=== PATIENT | female | born 1940 | race Caucasian/White ===

== ENCOUNTER 2022-03-17 08:46 | Observation (INO) ==
[2022-03-17] MEDS ORDERED: SODIUM CHLORIDE 0.9% 1,000 ML IV STA (09:11)
[2022-03-17 09:41] LABS: Eosinophils # 0.1 10*3/uL (0.0-0.87); Eosinophils % 2.8 % (0.00-10.9); Hematocrit 39.1 VOL% (35.7-47.0); Hemoglobin 12.2 GM/DL (12.0-16.0); Immature Granulocytes % 0.3 %; Immature Granulocytes Absolute 0.01 #; Lymphocytes % 23.8 % (21.3-54.2); Mean Corpuscular HGB Conc 31.2 GM/DL (32-36); Mean Corpuscular Volume 82.8 FL (87-102); Mean Platelet Volume 13.2 FL (9.6-12.0); Monocytes # 0.4 10*3/uL (0.11-0.8); Monocytes % 9.3 % (1.7-12.7); Neutrophils % 62.8 % (38.7-73.9); Platelet Count 131 T/CUMM (130-400); Red Blood Count 4.72 MC/CUMM (3.8-5.5); Red Cell Distribution Width 16.7 % (9.3-17.3)
[2022-03-17 10:00] LABS: Albumin 2.9 G/DL (3.4-5.0); Bilirubin,Total 0.4 MG/DL (0.20-1.00); Calcium 8.3 MG/DL (8.5-10.1); Osmolality,Calculated 266.2 MOS/KG (273-304); Potassium 3.6 MMOL/L (3.5-5.1); Total Protein 7.1 G/DL (6.4-8.2)
[2022-03-17 10:25] LABS: Burr Cells Slight; Ovalocytes Slight
[2022-03-17 10:26] LABS: Platelet Estimate Adequate
[2022-03-17 10:49] LABS: INR 1.3; PT Patient Result 14.4 SECS (10.5-12.0)
[2022-03-17] MEDS ORDERED: ACETAMINOPHEN 325 MG TABLET PO PRN (10:50)
[2022-03-17] MEDS ORDERED: ONDANSETRON 4 MG/2 ML VIAL IV PRN (10:50)
[2022-03-17] MEDS ORDERED: DEXTROSE 10% 250 ML BAG IV PRN (10:50)
[2022-03-17] MEDS ORDERED: GLUCAGON 1 MG VIAL IM PRN (10:50)
[2022-03-17 12:25] LABS: Bacteria,Urine Occasional /HPF (Few); Mucus,Urine Occasional /LPF (Occasional); RBC,Urine 1 /HPF (0-4); Squamous Epithelial Cell,Urine Occasional /HPF (0-10); Urine Color Yellow (Yellow)
[2022-03-17 12:26] LABS: Bilirubin,Urine Negative (Negative); Blood, Urine Trace mg/dL (Negative); Glucose,Urine (UA) Negative (Negative); Ketones,Urine Negative (Negative); Nitrite,Urine Negative (Negative); Protein,Urine Negative (Negative); Urine Appearance Clear (Clear); Urine Urobilinogen 0.2 eU/dL (<2.0); Urine pH 5.5 (4.5-8.0)
[2022-03-17] MEDS: SODIUM CHLORIDE 0.9% 1,000 ML IV SCH ×2 (13:02→18:21)
[2022-03-17] MEDS ORDERED: CYANOCOBALAMIN 1000 MCG/1 ML VIAL IM ONE (17:00)
[2022-03-17] MEDS: WARFARIN 7.5 MG TABLET PO SCH (18:16)
[2022-03-17] MEDS: POTASSIUM CHLORIDE 20 MEQ TABLET PO SCH (18:17)
[2022-03-17] MEDS: DONEPEZIL 5 MG TABLET PO SCH (21:05)
[2022-03-17] MEDS: TOPIRAMATE 200 MG TABLET PO SCH (21:05)
[2022-03-17] MEDS: OXcarbazepine 300 MG TABLET PO SCH (21:05)
[2022-03-17] MEDS: MAGNESIUM OXIDE 400 MG TABLET PO SCH (21:05)
[2022-03-17] MEDS: DOCUSATE SODIUM 100 MG CAPSULE PO SCH (21:05)
[2022-03-18] MEDS: SODIUM CHLORIDE 0.9% 1,000 ML IV SCH ×2 (02:17→18:11)
[2022-03-18 05:15] LABS: Basophils % 1.2 % (0.0-0.8); Eosinophils # 0.2 10*3/uL (0.0-0.87); Eosinophils % 5.7 % (0.00-10.9); Hematocrit 34.8 VOL% (35.7-47.0); Hemoglobin 10.7 GM/DL (12.0-16.0); Immature Granulocytes % 0.3 %; Immature Granulocytes Absolute 0.01 #; Lymphocytes # 1.3 10*3/uL (1.4-4.0); Lymphocytes % 38.3 % (21.3-54.2); Mean Corpuscular HGB Conc 30.7 GM/DL (32-36); Mean Corpuscular Volume 83.5 FL (87-102); Mean Platelet Volume 12.7 FL (9.6-12.0); Monocytes # 0.4 10*3/uL (0.11-0.8); Monocytes % 11.4 % (1.7-12.7); Neutrophils % 43.1 % (38.7-73.9); Platelet Count 113 T/CUMM (130-400); Red Blood Count 4.17 MC/CUMM (3.8-5.5); Red Cell Distribution Width 17.1 % (9.3-17.3); White Blood Count 3.3 T/CUMM (4-12)
[2022-03-18 05:33] LABS: Alanine Aminotransferase 13 U/L (13-56); Albumin 2.6 G/DL (3.4-5.0); Alkaline Phosphatase 108 U/L (45-117); Aspartate Amino Transferase 18 U/L (0-37); Bilirubin,Total < 0.39 MG/DL (0.20-1.00); Blood Urea Nitrogen 10 MG/DL (7-18); Calcium 8.1 MG/DL (8.5-10.1); Carbon Dioxide 20 MMOL/L (21-32); Chloride 111 MMOL/L (98-107); Glucose 96 MG/DL (74-106); Potassium 3.5 MMOL/L (3.5-5.1); Sodium 136 MMOL/L (136-145); Total Protein 6.5 G/DL (6.4-8.2)
[2022-03-18] MEDS: DOCUSATE SODIUM 100 MG CAPSULE PO SCH ×2 (10:20→21:36)
[2022-03-18] MEDS: TOPIRAMATE 200 MG TABLET PO SCH ×2 (10:22→21:36)
[2022-03-18] MEDS: POTASSIUM CHLORIDE 20 MEQ TABLET PO SCH ×2 (10:22→18:09)
[2022-03-18] MEDS: METOPROLOL SUCCINATE XL 25 MG TABLET PO SCH (10:22)
[2022-03-18] MEDS: OXcarbazepine 300 MG TABLET PO SCH ×2 (10:23→21:36)
[2022-03-18] MEDS: LOSARTAN 50 MG TABLET PO SCH (10:26)
[2022-03-18] MEDS: MAGNESIUM OXIDE 400 MG TABLET PO SCH ×2 (10:26→21:35)
[2022-03-18] MEDS: FUROSEMIDE 40 MG TABLET PO SCH (10:26)
[2022-03-18] MEDS: PANTOPRAZOLE 40 MG TABLET PO SCH (10:26)
[2022-03-18] MEDS: WARFARIN 7.5 MG TABLET PO SCH (18:10)
[2022-03-18] MEDS: DONEPEZIL 5 MG TABLET PO SCH (21:34)
[2022-03-18] MEDS: ATORVASTATIN 40 MG TABLET PO SCH (21:35)
[2022-03-19 04:52] LABS: Basophils % 0.6 % (0.0-0.8); Eosinophils # 0.3 10*3/uL (0.0-0.87); Eosinophils % 5.3 % (0.00-10.9); Hematocrit 34.9 VOL% (35.7-47.0); Hemoglobin 10.9 GM/DL (12.0-16.0); Immature Granulocytes % 0.2 %; Immature Granulocytes Absolute 0.01 #; Lymphocytes # 1.3 10*3/uL (1.4-4.0); Lymphocytes % 27.2 % (21.3-54.2); Mean Corpuscular HGB Conc 31.2 GM/DL (32-36); Mean Corpuscular Volume 83.3 FL (87-102); Monocytes # 0.5 10*3/uL (0.11-0.8); Monocytes % 10.6 % (1.7-12.7); Neutrophils % 56.1 % (38.7-73.9); Platelet Count 108 T/CUMM (130-400); Red Blood Count 4.19 MC/CUMM (3.8-5.5); Red Cell Distribution Width 17.2 % (9.3-17.3)
[2022-03-19 04:56] LABS: White Blood Count 4.9 T/CUMM (4-12)
[2022-03-19] MEDS: POTASSIUM CHLORIDE 20 MEQ TABLET PO SCH ×2 (11:13→19:44)
[2022-03-19] MEDS: MAGNESIUM OXIDE 400 MG TABLET PO SCH ×2 (11:13→20:29)
[2022-03-19] MEDS: OXcarbazepine 300 MG TABLET PO SCH ×2 (11:13→20:29)
[2022-03-19] MEDS: DOCUSATE SODIUM 100 MG CAPSULE PO SCH ×2 (11:14→20:30)
[2022-03-19] MEDS: PANTOPRAZOLE 40 MG TABLET PO SCH (11:14)
[2022-03-19] MEDS: TOPIRAMATE 200 MG TABLET PO SCH ×2 (11:16→20:30)
[2022-03-19] MEDS: METOPROLOL SUCCINATE XL 25 MG TABLET PO SCH (11:21)
[2022-03-19] MEDS: LOSARTAN 50 MG TABLET PO SCH (11:21)
[2022-03-19] MEDS: FUROSEMIDE 40 MG TABLET PO SCH (11:21)
[2022-03-19 14:46] LABS: PT Patient Result 21.4 SECS (10.5-12.0)
[2022-03-19] MEDS: ENOXAPARIN 80 MG/0.8 ML SYRINGE SUBCUT SCH (16:31)
[2022-03-19] MEDS: SODIUM CHLORIDE 0.9% 1,000 ML IV SCH (16:33)
[2022-03-19] MEDS: WARFARIN 7.5 MG TABLET PO SCH (19:44)
[2022-03-19] MEDS: DONEPEZIL 5 MG TABLET PO SCH (20:30)
[2022-03-19] MEDS: ATORVASTATIN 40 MG TABLET PO SCH (20:30)
[2022-03-20 05:33] LABS: Basophils % 0.8 % (0.0-0.8); Eosinophils # 0.2 10*3/uL (0.0-0.87); Eosinophils % 6.2 % (0.00-10.9); Hemoglobin 10.9 GM/DL (12.0-16.0); Immature Granulocytes % 0.3 %; Immature Granulocytes Absolute 0.01 #; Lymphocytes # 1.4 10*3/uL (1.4-4.0); Lymphocytes % 36.4 % (21.3-54.2); Mean Corpuscular HGB Conc 30.3 GM/DL (32-36); Mean Corpuscular Volume 84.3 FL (87-102); Monocytes # 0.5 10*3/uL (0.11-0.8); Monocytes % 11.9 % (1.7-12.7); Neutrophils % 44.4 % (38.7-73.9); Red Blood Count 4.27 MC/CUMM (3.8-5.5); Red Cell Distribution Width 17.2 % (9.3-17.3); White Blood Count 3.9 T/CUMM (4-12)
[2022-03-20 05:34] LABS: Platelet Count 96 T/CUMM (130-400)
[2022-03-20 05:52] LABS: Platelet Estimate Decreased
[2022-03-20] MEDS: SODIUM CHLORIDE 0.9% 1,000 ML IV SCH (06:33)
[2022-03-20] MEDS: DOCUSATE SODIUM 100 MG CAPSULE PO SCH (08:57)
[2022-03-20] MEDS: OXcarbazepine 300 MG TABLET PO SCH (09:29)
[2022-03-20] MEDS: PANTOPRAZOLE 40 MG TABLET PO SCH (09:29)
[2022-03-20] MEDS: FUROSEMIDE 40 MG TABLET PO SCH (09:29)
[2022-03-20] MEDS: POTASSIUM CHLORIDE 20 MEQ TABLET PO SCH (09:29)
[2022-03-20] MEDS: MAGNESIUM OXIDE 400 MG TABLET PO SCH (09:30)
[2022-03-20] MEDS: LOSARTAN 50 MG TABLET PO SCH (09:30)
[2022-03-20] MEDS: METOPROLOL SUCCINATE XL 25 MG TABLET PO SCH (09:31)
[2022-03-20] MEDS: TOPIRAMATE 200 MG TABLET PO SCH (09:31)
[2022-03-20 14:18] VITALS: BP 151/73
[2022-03-20] MEDS: ENOXAPARIN 80 MG/0.8 ML SYRINGE SUBCUT SCH (15:02)
[2022-03-20] MEDS ORDERED: WARFARIN 5 MG TABLET PO SCH (18:00)
== END 2022-03-20 15:33 | disposition home or self-care (01) ==
LOC: N.ED 08:46 → N.EDINP 08:46 → N.TELEN 15:30
PROVIDERS: ADMIT Family Medicine; ATTEND Family Medicine

== ENCOUNTER 2022-06-13 10:31 | Inpatient (IN) ==
[2022-06-13] MEDS ORDERED: BISACODYL 5 MG TABLET PO PRN (10:42)
[2022-06-13] MEDS ORDERED: CALCIUM CARBONATE CHEW 500 MG TABLET PO PRN (10:42)
[2022-06-13] MEDS ORDERED: ACETAMINOPHEN 325 MG TABLET PO PRN (10:42)
[2022-06-13] MEDS ORDERED: ALUMINUM/MAGNES/SIMETH MAX STR 30 ML UDCUP PO PRN (10:42)
[2022-06-13] MEDS ORDERED: SIMETHICONE CHEW 125 MG TABLET PO PRN (10:42)
[2022-06-13] MEDS ORDERED: ONDANSETRON 4 MG/2 ML VIAL IV PRN (10:42)
[2022-06-13] MEDS ORDERED: LACTULOSE 20 GM/30 ML UDCUP PO PRN (10:42)
[2022-06-13 12:28] LABS: Basophils # 0.1 10*3/uL (0.0-0.2); Basophils % 1.5 % (0.0-0.8); Eosinophils # 0.1 10*3/uL (0.0-0.87); Eosinophils % 1.8 % (0.00-10.9); Hematocrit 31.8 VOL% (35.7-47.0); Hemoglobin 9.6 GM/DL (12.0-16.0); Immature Granulocytes % 0.5 %; Immature Granulocytes Absolute 0.02 #; Lymphocytes # 1.1 10*3/uL (1.4-4.0); Lymphocytes % 28.6 % (21.3-54.2); Mean Corpuscular HGB Conc 30.2 GM/DL (32-36); Mean Corpuscular Volume 79.3 FL (87-102); Mean Platelet Volume 10.6 FL (9.6-12.0); Monocytes # 0.3 10*3/uL (0.11-0.8); Monocytes % 7.5 % (1.7-12.7); Neutrophils % 60.1 % (38.7-73.9); Platelet Count 212 T/CUMM (130-400); Red Blood Count 4.01 MC/CUMM (3.8-5.5); Red Cell Distribution Width 17.9 % (9.3-17.3); White Blood Count 3.9 T/CUMM (4-12)
[2022-06-13 12:35] LABS: Mucus,Urine Occasional /LPF (Occasional); RBC,Urine 4 /HPF (0-4); Squamous Epithelial Cell,Urine Occasional /HPF (0-10)
[2022-06-13 12:36] LABS: Urine Appearance Slightly Hazy (Clear); Urine Color Yellow (Yellow); Urine Specific Gravity > 1.030 (1.001-1.035); Urine pH 5.5 (4.5-8.0)
[2022-06-13 12:37] LABS: Bilirubin,Urine Small mg/dL (Negative); Blood, Urine Negative (Negative); Glucose,Urine (UA) Negative (Negative); Ketones,Urine Negative (Negative); Nitrite,Urine Negative (Negative); Protein,Urine 100 mg/dL (Negative)
[2022-06-13 13:39] LABS: Albumin 2.8 G/DL (3.4-5.0); Calcium 8.4 MG/DL (8.5-10.1); Osmolality,Calculated 254.9 MOS/KG (273-304); Potassium 5.1 MMOL/L (3.5-5.1); Thyroid Stimulating Hormone 3.57 uIU/ml (0.358-3.74); Total Protein 6.8 G/DL (6.4-8.2)
[2022-06-13] MEDS ORDERED: DEXTROSE 10% 250 ML BAG IV PRN (14:37)
[2022-06-13] MEDS ORDERED: GLUCAGON 1 MG VIAL IM PRN (14:37)
[2022-06-13 14:45] LABS: INR 4.4; PT Patient Result 43.4 SECS (10.1-12.1)
[2022-06-13] MEDS ORDERED: MAGNESIUM SULF RIDER 2 GM/50 ML PREMIX IV ONE (15:00)
[2022-06-13] MEDS: FUROSEMIDE 40 MG/4 ML VIAL IV SCH (15:35)
[2022-06-13] MEDS: INSULIN LISPRO 100 UNIT/ML SUBCUT SCH ×2 (15:53→20:43)
[2022-06-13 16:32] LABS: % Iron Saturation 5.1 % (18-50); Ferritin 16.5 ng/mL (8-252)
[2022-06-13] MEDS ORDERED: POTASSIUM CHLORIDE 20 MEQ TABLET PO SCH (17:00)
[2022-06-13] MEDS: TOPIRAMATE 100 MG TABLET PO SCH (20:42)
[2022-06-13] MEDS: MAGNESIUM OXIDE 400 MG TABLET PO SCH (20:42)
[2022-06-13] MEDS: ATORVASTATIN 40 MG TABLET PO SCH (20:42)
[2022-06-13] MEDS: DONEPEZIL 5 MG TABLET PO SCH (20:42)
[2022-06-14 05:06] LABS: Basophils # 0.1 10*3/uL (0.0-0.2); Basophils % 1.3 % (0.0-0.8); Eosinophils # 0.1 10*3/uL (0.0-0.87); Eosinophils % 2.6 % (0.00-10.9); Hematocrit 28.1 VOL% (35.7-47.0); Hemoglobin 8.5 GM/DL (12.0-16.0); Immature Granulocytes % 0.3 %; Immature Granulocytes Absolute 0.01 #; Lymphocytes # 1.1 10*3/uL (1.4-4.0); Lymphocytes % 29.6 % (21.3-54.2); Mean Corpuscular HGB Conc 30.2 GM/DL (32-36); Mean Corpuscular Volume 78.1 FL (87-102); Mean Platelet Volume 10.6 FL (9.6-12.0); Monocytes # 0.3 10*3/uL (0.11-0.8); Monocytes % 8.6 % (1.7-12.7); Neutrophils % 57.6 % (38.7-73.9); Platelet Count 194 T/CUMM (130-400); Red Cell Distribution Width 17.8 % (9.3-17.3); White Blood Count 3.9 T/CUMM (4-12)
[2022-06-14 05:13] LABS: INR 3.2; PT Patient Result 32.1 SECS (10.1-12.1)
[2022-06-14 05:42] LABS: Calcium 8.3 MG/DL (8.5-10.1); Osmolality,Calculated 254.9 MOS/KG (273-304); Potassium 3.5 MMOL/L (3.5-5.1); Risk Ratio 2.43; VLDL Cholesterol 10.2 MG/DL
[2022-06-14] MEDS: INSULIN LISPRO 100 UNIT/ML SUBCUT SCH ×4 (08:38→21:25)
[2022-06-14] MEDS: FUROSEMIDE 40 MG/4 ML VIAL IV SCH ×2 (08:39→16:39)
[2022-06-14] MEDS: LEFLUNOMIDE 10 MG TABLET PO SCH (08:40)
[2022-06-14] MEDS: amLODIPine 5 MG TABLET PO SCH (08:40)
[2022-06-14] MEDS: MAGNESIUM OXIDE 400 MG TABLET PO SCH ×2 (08:40→21:24)
[2022-06-14] MEDS: TOPIRAMATE 100 MG TABLET PO SCH ×2 (08:40→21:24)
[2022-06-14] MEDS: METOPROLOL SUCCINATE XL 50 MG TABLET PO SCH (08:41)
[2022-06-14] MEDS: CHOLECALCIFEROL 1,000 UNIT TABLET PO SCH (08:41)
[2022-06-14] MEDS: PANTOPRAZOLE 40 MG TABLET PO SCH (08:41)
[2022-06-14] MEDS: FERROUS SULFATE 325 MG TABLET PO SCH ×3 (08:43→21:25)
[2022-06-14] MEDS ORDERED: SODIUM CHLORIDE 0.9% 1,000 ML IV PRN (14:16)
[2022-06-14] MEDS: DONEPEZIL 5 MG TABLET PO SCH (21:24)
[2022-06-14] MEDS: ATORVASTATIN 40 MG TABLET PO SCH (21:25)
[2022-06-15] MEDS ORDERED: FUROSEMIDE 40 MG/4 ML VIAL IV ONE (01:09)
[2022-06-15 08:17] LABS: Basophils # 0.1 10*3/uL (0.0-0.2); Basophils % 1.3 % (0.0-0.8); Eosinophils # 0.1 10*3/uL (0.0-0.87); Eosinophils % 3.6 % (0.00-10.9); Hematocrit 34.1 VOL% (35.7-47.0); Immature Granulocytes % 0.3 %; Immature Granulocytes Absolute 0.01 #; Lymphocytes # 0.8 10*3/uL (1.4-4.0); Lymphocytes % 20.2 % (21.3-54.2); Mean Corpuscular HGB Conc 31.4 GM/DL (32-36); Mean Corpuscular Volume 79.3 FL (87-102); Mean Platelet Volume 11.8 FL (9.6-12.0); Monocytes # 0.4 10*3/uL (0.11-0.8); Monocytes % 9.1 % (1.7-12.7); Neutrophils % 65.5 % (38.7-73.9); Red Cell Distribution Width 18.6 % (9.3-17.3); White Blood Count 3.9 T/CUMM (4-12)
[2022-06-15 08:22] LABS: Hemoglobin 10.7 GM/DL (12.0-16.0); Platelet Count 141 T/CUMM (130-400)
[2022-06-15 08:24] LABS: INR 1.7; PT Patient Result 17.6 SECS (10.1-12.1)
[2022-06-15 08:33] LABS: Calcium 8.4 MG/DL (8.5-10.1); Osmolality,Calculated 262.4 MOS/KG (273-304); Potassium 3.2 MMOL/L (3.5-5.1)
[2022-06-15] MEDS: INSULIN LISPRO 100 UNIT/ML SUBCUT SCH ×4 (08:45→21:14)
[2022-06-15] MEDS: FUROSEMIDE 40 MG/4 ML VIAL IV SCH ×2 (08:47→15:33)
[2022-06-15] MEDS: TOPIRAMATE 100 MG TABLET PO SCH ×2 (08:49→21:14)
[2022-06-15] MEDS: CHOLECALCIFEROL 1,000 UNIT TABLET PO SCH (08:50)
[2022-06-15] MEDS: PANTOPRAZOLE 40 MG TABLET PO SCH (08:50)
[2022-06-15] MEDS: LEFLUNOMIDE 10 MG TABLET PO SCH (08:50)
[2022-06-15] MEDS: amLODIPine 5 MG TABLET PO SCH (08:50)
[2022-06-15] MEDS: METOPROLOL SUCCINATE XL 50 MG TABLET PO SCH (08:50)
[2022-06-15] MEDS: FERROUS SULFATE 325 MG TABLET PO SCH ×3 (08:50→21:18)
[2022-06-15] MEDS: MAGNESIUM OXIDE 400 MG TABLET PO SCH ×2 (08:51→21:13)
[2022-06-15] MEDS: WARFARIN 7.5 MG TABLET PO SCH (17:59)
[2022-06-15] MEDS: ATORVASTATIN 40 MG TABLET PO SCH (21:13)
[2022-06-15] MEDS: DONEPEZIL 5 MG TABLET PO SCH (21:14)
[2022-06-16 05:15] LABS: Eosinophils # 0.2 10*3/uL (0.0-0.87); Eosinophils % 3.9 % (0.00-10.9); Hematocrit 33.2 VOL% (35.7-47.0); Hemoglobin 10.3 GM/DL (12.0-16.0); Immature Granulocytes % 0.5 %; Immature Granulocytes Absolute 0.02 #; Lymphocytes % 24.8 % (21.3-54.2); Mean Corpuscular Volume 80.6 FL (87-102); Mean Platelet Volume 10.4 FL (9.6-12.0); Monocytes # 0.5 10*3/uL (0.11-0.8); Monocytes % 11.1 % (1.7-12.7); Neutrophils % 58.7 % (38.7-73.9); Platelet Count 190 T/CUMM (130-400); Red Blood Count 4.12 MC/CUMM (3.8-5.5); Red Cell Distribution Width 18.6 % (9.3-17.3); White Blood Count 4.2 T/CUMM (4-12)
[2022-06-16 05:30] LABS: INR 1.3; PT Patient Result 14.6 SECS (10.1-12.1)
[2022-06-16 05:36] LABS: Calcium 8.7 MG/DL (8.5-10.1); Osmolality,Calculated 264.2 MOS/KG (273-304); Potassium 3.3 MMOL/L (3.5-5.1)
[2022-06-16] MEDS ORDERED: LACTATED RINGERS 1,000 ML IV SCH (08:00)
[2022-06-16] MEDS: FUROSEMIDE 40 MG/4 ML VIAL IV SCH (08:58)
[2022-06-16] MEDS: INSULIN LISPRO 100 UNIT/ML SUBCUT SCH ×4 (09:58→21:48)
[2022-06-16] MEDS: LEFLUNOMIDE 10 MG TABLET PO SCH (12:04)
[2022-06-16] MEDS: TOPIRAMATE 100 MG TABLET PO SCH ×2 (12:05→21:48)
[2022-06-16] MEDS: FERROUS SULFATE 325 MG TABLET PO SCH ×3 (12:05→21:48)
[2022-06-16] MEDS: MAGNESIUM OXIDE 400 MG TABLET PO SCH ×2 (12:05→21:48)
[2022-06-16] MEDS: METOPROLOL SUCCINATE XL 50 MG TABLET PO SCH (12:05)
[2022-06-16] MEDS: PANTOPRAZOLE 40 MG TABLET PO SCH (12:05)
[2022-06-16] MEDS: amLODIPine 5 MG TABLET PO SCH (12:05)
[2022-06-16] MEDS: CHOLECALCIFEROL 1,000 UNIT TABLET PO SCH (12:06)
[2022-06-16] MEDS ORDERED: LIDOCAINE 2% 5 ML VIAL ONE (12:35)
[2022-06-16] MEDS ORDERED: propofoL 200 MG/20 ML VIAL IV ONE (12:35)
[2022-06-16] MEDS ORDERED: ETOMIDATE 20 MG/10 ML VIAL IV ONE (12:35)
[2022-06-16] MEDS ORDERED: POTASSIUM CHLORIDE 20 MEQ TABLET PO ONE (13:44)
[2022-06-16] MEDS ORDERED: ENOXAPARIN 120 MG/0.8 ML SYRINGE SUBCUT SCH (20:00)
[2022-06-16] MEDS: DONEPEZIL 5 MG TABLET PO SCH (21:47)
[2022-06-16] MEDS: ATORVASTATIN 40 MG TABLET PO SCH (21:48)
[2022-06-17 06:13] LABS: Basophils % 0.7 % (0.0-0.8); Eosinophils # 0.2 10*3/uL (0.0-0.87); Eosinophils % 3.8 % (0.00-10.9); Hematocrit 35.7 VOL% (35.7-47.0); Hemoglobin 11.1 GM/DL (12.0-16.0); Immature Granulocytes % 0.5 %; Immature Granulocytes Absolute 0.02 #; Lymphocytes # 1.1 10*3/uL (1.4-4.0); Mean Corpuscular HGB Conc 31.1 GM/DL (32-36); Mean Corpuscular Volume 80.4 FL (87-102); Mean Platelet Volume 11.3 FL (9.6-12.0); Monocytes # 0.5 10*3/uL (0.11-0.8); Monocytes % 11.8 % (1.7-12.7); Neutrophils % 58.2 % (38.7-73.9); Platelet Count 200 T/CUMM (130-400); Red Blood Count 4.44 MC/CUMM (3.8-5.5); Red Cell Distribution Width 19.4 % (9.3-17.3); White Blood Count 4.2 T/CUMM (4-12)
[2022-06-17 06:26] LABS: Calcium 8.5 MG/DL (8.5-10.1); Osmolality,Calculated 263.2 MOS/KG (273-304)
[2022-06-17 06:32] LABS: INR 1.5; PT Patient Result 15.9 SECS (10.1-12.1)
[2022-06-17] MEDS: MAGNESIUM OXIDE 400 MG TABLET PO SCH ×2 (09:27→22:01)
[2022-06-17] MEDS: SPIRONOLACTONE 25 MG TABLET PO SCH (09:27)
[2022-06-17] MEDS: LEFLUNOMIDE 10 MG TABLET PO SCH (09:27)
[2022-06-17] MEDS: CHOLECALCIFEROL 1,000 UNIT TABLET PO SCH (09:28)
[2022-06-17] MEDS: amLODIPine 5 MG TABLET PO SCH (09:28)
[2022-06-17] MEDS: FERROUS SULFATE 325 MG TABLET PO SCH ×3 (09:28→22:00)
[2022-06-17] MEDS: PANTOPRAZOLE 40 MG TABLET PO SCH (09:28)
[2022-06-17] MEDS: TOPIRAMATE 100 MG TABLET PO SCH ×2 (09:28→22:01)
[2022-06-17] MEDS: METOPROLOL SUCCINATE XL 50 MG TABLET PO SCH (09:28)
[2022-06-17] MEDS: INSULIN LISPRO 100 UNIT/ML SUBCUT SCH ×4 (09:42→22:00)
[2022-06-17] MEDS ORDERED: POTASSIUM CHLORIDE 20 MEQ TABLET PO ONE (11:46)
[2022-06-17] MEDS: ATORVASTATIN 40 MG TABLET PO SCH (22:00)
[2022-06-17] MEDS: DONEPEZIL 5 MG TABLET PO SCH (22:00)
[2022-06-18 06:24] LABS: Basophils % 0.5 % (0.0-0.8); Eosinophils # 0.2 10*3/uL (0.0-0.87); Eosinophils % 5.2 % (0.00-10.9); Hematocrit 36.4 VOL% (35.7-47.0); Hemoglobin 11.4 GM/DL (12.0-16.0); Immature Granulocytes % 0.2 %; Immature Granulocytes Absolute 0.01 #; Lymphocytes # 1.2 10*3/uL (1.4-4.0); Lymphocytes % 29.6 % (21.3-54.2); Mean Corpuscular HGB Conc 31.3 GM/DL (32-36); Mean Corpuscular Volume 80.7 FL (87-102); Monocytes # 0.4 10*3/uL (0.11-0.8); Neutrophils % 54.5 % (38.7-73.9); Platelet Count 180 T/CUMM (130-400); Red Blood Count 4.51 MC/CUMM (3.8-5.5); Red Cell Distribution Width 19.9 % (9.3-17.3)
[2022-06-18 06:32] LABS: INR 1.3; PT Patient Result 13.7 SECS (10.1-12.1)
[2022-06-18 06:45] LABS: Calcium 8.6 MG/DL (8.5-10.1); Osmolality,Calculated 260.5 MOS/KG (273-304); Potassium 3.6 MMOL/L (3.5-5.1)
[2022-06-18] MEDS: ENOXAPARIN 40 MG/0.4 ML SYRINGE SUBCUT SCH (09:06)
[2022-06-18] MEDS: LEFLUNOMIDE 10 MG TABLET PO SCH (09:07)
[2022-06-18] MEDS: PANTOPRAZOLE 40 MG TABLET PO SCH (09:08)
[2022-06-18] MEDS: MAGNESIUM OXIDE 400 MG TABLET PO SCH ×2 (09:08→21:40)
[2022-06-18] MEDS: amLODIPine 5 MG TABLET PO SCH (09:08)
[2022-06-18] MEDS: TOPIRAMATE 100 MG TABLET PO SCH ×2 (09:08→21:41)
[2022-06-18] MEDS: CHOLECALCIFEROL 1,000 UNIT TABLET PO SCH (09:08)
[2022-06-18] MEDS: METOPROLOL SUCCINATE XL 50 MG TABLET PO SCH (09:08)
[2022-06-18] MEDS: SPIRONOLACTONE 25 MG TABLET PO SCH (09:08)
[2022-06-18] MEDS: FERROUS SULFATE 325 MG TABLET PO SCH ×3 (09:13→21:40)
[2022-06-18] MEDS: INSULIN LISPRO 100 UNIT/ML SUBCUT SCH ×4 (09:48→21:41)
[2022-06-18] MEDS: DONEPEZIL 5 MG TABLET PO SCH (21:40)
[2022-06-18] MEDS: ATORVASTATIN 40 MG TABLET PO SCH (21:51)
[2022-06-19 05:23] LABS: Eosinophils # 0.2 10*3/uL (0.0-0.87); Eosinophils % 5.7 % (0.00-10.9); Hematocrit 35.2 VOL% (35.7-47.0); Hemoglobin 10.7 GM/DL (12.0-16.0); Immature Granulocytes % 0.3 %; Immature Granulocytes Absolute 0.01 #; Lymphocytes # 1.1 10*3/uL (1.4-4.0); Lymphocytes % 29.7 % (21.3-54.2); Mean Corpuscular HGB Conc 30.4 GM/DL (32-36); Mean Corpuscular Volume 81.1 FL (87-102); Monocytes # 0.4 10*3/uL (0.11-0.8); Monocytes % 9.4 % (1.7-12.7); Neutrophils % 53.9 % (38.7-73.9); Platelet Count 168 T/CUMM (130-400); Red Blood Count 4.34 MC/CUMM (3.8-5.5); Red Cell Distribution Width 19.9 % (9.3-17.3); White Blood Count 3.8 T/CUMM (4-12)
[2022-06-19 05:32] LABS: Calcium 8.5 MG/DL (8.5-10.1); Potassium 3.6 MMOL/L (3.5-5.1)
[2022-06-19 05:33] LABS: INR 1.1; PT Patient Result 12.4 SECS (10.1-12.1)
[2022-06-19] MEDS ORDERED: DIAZEPAM 5 MG TABLET PO ONE (06:00)
[2022-06-19] MEDS ORDERED: SODIUM CHLORIDE 0.45% 1,000 ML IV SCH (06:00)
[2022-06-19] MEDS ORDERED: diphenhydrAMINE CAP 25 MG CAPSULE PO ONE (06:00)
[2022-06-19] MEDS ORDERED: HEPARIN/NACL 0.9% 2 UNITS/ML 2,000 UNIT/1,000 ML BAG IV ONE (06:46)
[2022-06-19] MEDS: INSULIN LISPRO 100 UNIT/ML SUBCUT SCH ×4 (07:47→21:32)
[2022-06-19] MEDS ORDERED: MIDAZOLAM 2 MG/2 ML VIAL ONE ×2 (08:53→09:46)
[2022-06-19] MEDS ORDERED: fentaNYL 100 MCG/2 ML VIAL ONE (08:54)
[2022-06-19] MEDS ORDERED: ENOXAPARIN 60 MG/0.6 ML SYRINGE ONE (10:11)
[2022-06-19] MEDS ORDERED: ENOXAPARIN 100 MG/ML SYRINGE SUBCUT SCH (10:30)
[2022-06-19] MEDS: MAGNESIUM OXIDE 400 MG TABLET PO SCH ×2 (11:44→21:33)
[2022-06-19] MEDS: LEFLUNOMIDE 10 MG TABLET PO SCH (11:44)
[2022-06-19] MEDS: SPIRONOLACTONE 25 MG TABLET PO SCH (11:44)
[2022-06-19] MEDS: FERROUS SULFATE 325 MG TABLET PO SCH ×3 (11:44→21:32)
[2022-06-19] MEDS: TOPIRAMATE 100 MG TABLET PO SCH ×2 (11:44→21:33)
[2022-06-19] MEDS: PANTOPRAZOLE 40 MG TABLET PO SCH (11:44)
[2022-06-19] MEDS: amLODIPine 5 MG TABLET PO SCH (11:45)
[2022-06-19] MEDS: METOPROLOL SUCCINATE XL 50 MG TABLET PO SCH (11:45)
[2022-06-19] MEDS: CHOLECALCIFEROL 1,000 UNIT TABLET PO SCH (11:45)
[2022-06-19] MEDS: ENOXAPARIN 40 MG/0.4 ML SYRINGE SUBCUT SCH (12:09)
[2022-06-19] MEDS: ENOXAPARIN 120 MG/0.8 ML SYRINGE SUBCUT SCH (15:37)
[2022-06-19] MEDS ORDERED: WARFARIN 5 MG TABLET PO SCH (18:00)
[2022-06-19] MEDS: DONEPEZIL 5 MG TABLET PO SCH (21:32)
[2022-06-19] MEDS: ATORVASTATIN 40 MG TABLET PO SCH (21:33)
[2022-06-20 05:00] LABS: Basophils % 0.8 % (0.0-0.8); Eosinophils # 0.2 10*3/uL (0.0-0.87); Eosinophils % 4.4 % (0.00-10.9); Hematocrit 36.2 VOL% (35.7-47.0); Hemoglobin 11.1 GM/DL (12.0-16.0); Immature Granulocytes % 0.4 %; Immature Granulocytes Absolute 0.02 #; Lymphocytes # 1.2 10*3/uL (1.4-4.0); Lymphocytes % 24.4 % (21.3-54.2); Mean Corpuscular HGB Conc 30.7 GM/DL (32-36); Mean Corpuscular Volume 81.5 FL (87-102); Mean Platelet Volume 10.4 FL (9.6-12.0); Monocytes # 0.5 10*3/uL (0.11-0.8); Monocytes % 9.5 % (1.7-12.7); Neutrophils % 60.5 % (38.7-73.9); Platelet Count 175 T/CUMM (130-400); Red Blood Count 4.44 MC/CUMM (3.8-5.5); Red Cell Distribution Width 20.3 % (9.3-17.3); White Blood Count 4.8 T/CUMM (4-12)
[2022-06-20 05:16] LABS: Calcium 8.8 MG/DL (8.5-10.1); Potassium 3.6 MMOL/L (3.5-5.1)
[2022-06-20] MEDS: INSULIN LISPRO 100 UNIT/ML SUBCUT SCH ×4 (08:05→22:05)
[2022-06-20 08:59] LABS: INR 1.2; PT Patient Result 12.7 SECS (10.1-12.1)
[2022-06-20] MEDS: SPIRONOLACTONE 25 MG TABLET PO SCH (09:24)
[2022-06-20] MEDS: PANTOPRAZOLE 40 MG TABLET PO SCH (09:24)
[2022-06-20] MEDS: TOPIRAMATE 100 MG TABLET PO SCH ×2 (09:24→22:05)
[2022-06-20] MEDS: CHOLECALCIFEROL 1,000 UNIT TABLET PO SCH (09:24)
[2022-06-20] MEDS: FERROUS SULFATE 325 MG TABLET PO SCH ×3 (09:24→22:05)
[2022-06-20] MEDS: MAGNESIUM OXIDE 400 MG TABLET PO SCH ×2 (09:24→22:05)
[2022-06-20] MEDS: LEFLUNOMIDE 10 MG TABLET PO SCH (09:24)
[2022-06-20] MEDS: amLODIPine 5 MG TABLET PO SCH (09:24)
[2022-06-20] MEDS: METOPROLOL SUCCINATE XL 50 MG TABLET PO SCH (09:24)
[2022-06-20] MEDS ORDERED: METOPROLOL TARTRATE 25 MG TABLET PO ONE (14:12)
[2022-06-20] MEDS: ENOXAPARIN 120 MG/0.8 ML SYRINGE SUBCUT SCH (16:02)
[2022-06-20] MEDS: WARFARIN 7.5 MG TABLET PO SCH (17:55)
[2022-06-20] MEDS: SILDENAFIL 20 MG TABLET PO SCH (22:05)
[2022-06-20] MEDS: DONEPEZIL 5 MG TABLET PO SCH (22:05)
[2022-06-20] MEDS: ATORVASTATIN 40 MG TABLET PO SCH (22:05)
[2022-06-21 05:44] LABS: Basophils % 0.9 % (0.0-0.8); Eosinophils # 0.2 10*3/uL (0.0-0.87); Eosinophils % 5.6 % (0.00-10.9); Hematocrit 37.3 VOL% (35.7-47.0); Hemoglobin 11.5 GM/DL (12.0-16.0); Immature Granulocytes % 0.5 %; Immature Granulocytes Absolute 0.02 #; Lymphocytes # 1.1 10*3/uL (1.4-4.0); Lymphocytes % 25.4 % (21.3-54.2); Mean Corpuscular HGB Conc 30.8 GM/DL (32-36); Mean Corpuscular Volume 81.6 FL (87-102); Mean Platelet Volume 11.3 FL (9.6-12.0); Monocytes # 0.4 10*3/uL (0.11-0.8); Monocytes % 8.6 % (1.7-12.7); Platelet Count 134 T/CUMM (130-400); Red Blood Count 4.57 MC/CUMM (3.8-5.5); Red Cell Distribution Width 20.5 % (9.3-17.3); White Blood Count 4.3 T/CUMM (4-12)
[2022-06-21 05:53] LABS: INR 1.3; PT Patient Result 13.9 SECS (10.1-12.1)
[2022-06-21 06:00] LABS: Calcium 8.5 MG/DL (8.5-10.1); Potassium 3.5 MMOL/L (3.5-5.1)
[2022-06-21 06:05] LABS: Acanthocytes Few; Hypochromia 1+; Microcytosis 2+
[2022-06-21 06:06] LABS: Burr Cells Slight; Ovalocytes Slight; Polychromasia Slight; Target Cells Slight
[2022-06-21 06:07] LABS: Platelet Estimate Adequate
[2022-06-21] MEDS: INSULIN LISPRO 100 UNIT/ML SUBCUT SCH ×4 (10:10→22:03)
[2022-06-21] MEDS: LEFLUNOMIDE 10 MG TABLET PO SCH (10:12)
[2022-06-21] MEDS: TOPIRAMATE 100 MG TABLET PO SCH ×2 (10:12→20:45)
[2022-06-21] MEDS: PANTOPRAZOLE 40 MG TABLET PO SCH (10:13)
[2022-06-21] MEDS: MAGNESIUM OXIDE 400 MG TABLET PO SCH ×2 (10:13→20:44)
[2022-06-21] MEDS: METOPROLOL SUCCINATE XL 50 MG TABLET PO SCH (10:13)
[2022-06-21] MEDS: SILDENAFIL 20 MG TABLET PO SCH ×3 (10:13→20:44)
[2022-06-21] MEDS: amLODIPine 10 MG TABLET PO SCH (10:13)
[2022-06-21] MEDS: SPIRONOLACTONE 25 MG TABLET PO SCH (10:14)
[2022-06-21] MEDS: CHOLECALCIFEROL 1,000 UNIT TABLET PO SCH (10:15)
[2022-06-21] MEDS: FERROUS SULFATE 325 MG TABLET PO SCH ×3 (10:15→20:44)
[2022-06-21] MEDS: ENOXAPARIN 120 MG/0.8 ML SYRINGE SUBCUT SCH (15:16)
[2022-06-21] MEDS: WARFARIN 7.5 MG TABLET PO SCH (17:10)
[2022-06-21] MEDS: DONEPEZIL 5 MG TABLET PO SCH (20:44)
[2022-06-21] MEDS: ATORVASTATIN 40 MG TABLET PO SCH (20:44)
[2022-06-22 05:33] LABS: Basophils # 0.1 10*3/uL (0.0-0.2); Basophils % 1.2 % (0.0-0.8); Eosinophils # 0.3 10*3/uL (0.0-0.87); Eosinophils % 6.1 % (0.00-10.9); Hematocrit 37.2 VOL% (35.7-47.0); Hemoglobin 11.3 GM/DL (12.0-16.0); Immature Granulocytes % 0.2 %; Immature Granulocytes Absolute 0.01 #; Lymphocytes # 1.3 10*3/uL (1.4-4.0); Lymphocytes % 32.2 % (21.3-54.2); Mean Corpuscular HGB Conc 30.4 GM/DL (32-36); Mean Corpuscular Volume 81.9 FL (87-102); Monocytes # 0.3 10*3/uL (0.11-0.8); Monocytes % 7.5 % (1.7-12.7); Neutrophils % 52.8 % (38.7-73.9); Platelet Count 177 T/CUMM (130-400); Red Blood Count 4.54 MC/CUMM (3.8-5.5); Red Cell Distribution Width 20.5 % (9.3-17.3); White Blood Count 4.1 T/CUMM (4-12)
[2022-06-22 05:41] LABS: INR 1.3; PT Patient Result 14.6 SECS (10.1-12.1)
[2022-06-22 05:50] LABS: Calcium 8.7 MG/DL (8.5-10.1); Osmolality,Calculated 271.7 MOS/KG (273-304); Potassium 3.4 MMOL/L (3.5-5.1)
[2022-06-22] MEDS ORDERED: POTASSIUM CHLORIDE 20 MEQ TABLET PO ONE (08:22)
[2022-06-22] MEDS: INSULIN LISPRO 100 UNIT/ML SUBCUT SCH ×2 (09:25→13:30)
[2022-06-22] MEDS: SPIRONOLACTONE 25 MG TABLET PO SCH (09:26)
[2022-06-22] MEDS: CHOLECALCIFEROL 1,000 UNIT TABLET PO SCH (09:26)
[2022-06-22] MEDS: TOPIRAMATE 100 MG TABLET PO SCH (09:26)
[2022-06-22] MEDS: FERROUS SULFATE 325 MG TABLET PO SCH ×2 (09:26→14:21)
[2022-06-22] MEDS: amLODIPine 10 MG TABLET PO SCH (09:26)
[2022-06-22] MEDS: SILDENAFIL 20 MG TABLET PO SCH ×2 (09:27→14:21)
[2022-06-22] MEDS: METOPROLOL SUCCINATE XL 50 MG TABLET PO SCH (09:27)
[2022-06-22] MEDS: LEFLUNOMIDE 10 MG TABLET PO SCH (09:27)
[2022-06-22] MEDS: PANTOPRAZOLE 40 MG TABLET PO SCH (09:27)
[2022-06-22] MEDS: MAGNESIUM OXIDE 400 MG TABLET PO SCH (09:27)
[2022-06-22 13:27] VITALS: BP 108/68
== END 2022-06-22 16:00 | disposition swing bed (61) | DRG 286 ==
LOC: N.2W → N.TELES 06-14 15:49
PROVIDERS: ADMIT Internal Medicine Cardiovascular Disease; ATTEND Internal Medicine Cardiovascular Disease

== ENCOUNTER 2022-09-26 13:24 | Observation (INO) ==
[2022-09-26 18:13] LABS: Hematocrit 36.3 VOL% (35.7-47.0); Hemoglobin 11.4 GM/DL (12.0-16.0); Immature Granulocytes % 0.5 %; Immature Granulocytes Absolute 0.02 #; Lymphocytes # 1.1 10*3/uL (1.4-4.0); Lymphocytes % 28.9 % (21.3-54.2); Mean Corpuscular HGB Conc 31.4 GM/DL (32-36); Mean Corpuscular Volume 89.2 FL (87-102); Mean Platelet Volume 10.4 FL (9.6-12.0); Monocytes # 0.2 10*3/uL (0.11-0.8); Monocytes % 5.1 % (1.7-12.7); Neutrophils % 63.5 % (38.7-73.9); Platelet Count 186 T/CUMM (130-400); Red Blood Count 4.07 MC/CUMM (3.8-5.5); Red Cell Distribution Width 19.9 % (9.3-17.3); White Blood Count 3.9 T/CUMM (4-12)
[2022-09-26 18:22] LABS: INR 4.2; PT Patient Result 41.7 SECS (10.1-12.1)
[2022-09-26 18:28] LABS: Albumin 3.6 G/DL (3.4-5.0); Bilirubin,Total 0.8 MG/DL (0.20-1.00); Calcium 9.2 MG/DL (8.5-10.1); Osmolality,Calculated 263.4 MOS/KG (273-304); Potassium 4.1 MMOL/L (3.5-5.1); Total Protein 8.3 G/DL (6.4-8.2)
[2022-09-26] MEDS ORDERED: GLUCAGON 1 MG VIAL IM PRN (18:48)
[2022-09-26] MEDS ORDERED: DEXTROSE 10% 250 ML BAG IV PRN (18:48)
[2022-09-26] MEDS ORDERED: ONDANSETRON 4 MG/2 ML VIAL IV PRN (18:48)
[2022-09-26] MEDS ORDERED: MORPHINE 2 MG/1 ML SYRINGE IV PRN (18:48)
[2022-09-26] MEDS ORDERED: NALOXONE 0.4 MG/ML VIAL IV PRN (18:48)
[2022-09-26] MEDS ORDERED: ACETAMINOPHEN 325 MG TABLET PO PRN (18:48)
[2022-09-26 20:28] LABS: Urine Appearance Clear (Clear); Urine Color Yellow (Yellow); Urine pH 5.5 (4.5-8.0)
[2022-09-26 20:29] LABS: Bilirubin,Urine Negative (Negative); Blood, Urine Negative (Negative); Glucose,Urine (UA) Negative (Negative); Ketones,Urine Negative (Negative); Nitrite,Urine Negative (Negative); Protein,Urine Negative (Negative); Urine Urobilinogen 0.2 eU/dL (<2.0)
[2022-09-26 20:30] LABS: RBC,Urine <1 /HPF (0-4); Squamous Epithelial Cell,Urine Occasional /HPF (0-10)
[2022-09-26] MEDS: INSULIN REGULAR 100 UNIT/ML SUBCUT SCH (21:53)
[2022-09-26] MEDS: DOCUSATE SODIUM 100 MG CAPSULE PO SCH (22:48)
[2022-09-27 06:21] LABS: Basophils # 0.1 10*3/uL (0.0-0.2); Basophils % 1.9 % (0.0-0.8); Eosinophils # 0.1 10*3/uL (0.0-0.87); Eosinophils % 2.2 % (0.00-10.9); Hematocrit 33.2 VOL% (35.7-47.0); Hemoglobin 10.6 GM/DL (12.0-16.0); Immature Granulocytes % 0.6 %; Immature Granulocytes Absolute 0.02 #; Lymphocytes # 1.3 10*3/uL (1.4-4.0); Lymphocytes % 40.7 % (21.3-54.2); Mean Corpuscular HGB Conc 31.9 GM/DL (32-36); Mean Corpuscular Volume 88.5 FL (87-102); Mean Platelet Volume 11.6 FL (9.6-12.0); Monocytes # 0.3 10*3/uL (0.11-0.8); Neutrophils % 45.6 % (38.7-73.9); Platelet Count 177 T/CUMM (130-400); Red Blood Count 3.75 MC/CUMM (3.8-5.5); Red Cell Distribution Width 19.7 % (9.3-17.3); White Blood Count 3.2 T/CUMM (4-12)
[2022-09-27 06:36] LABS: Alanine Aminotransferase < 9 U/L (13-56); Albumin 3.1 G/DL (3.4-5.0); Alkaline Phosphatase 101 U/L (45-117); Aspartate Amino Transferase 19 U/L (0-37); Blood Urea Nitrogen 7 MG/DL (7-18); Calcium 9.1 MG/DL (8.5-10.1); Carbon Dioxide 20 MMOL/L (21-32); Chloride 105 MMOL/L (98-107); Glucose 90 MG/DL (74-106); Osmolality,Calculated 265.2 MOS/KG (273-304); Sodium 134 MMOL/L (136-145); Total Protein 7.2 G/DL (6.4-8.2)
[2022-09-27] MEDS: INSULIN REGULAR 100 UNIT/ML SUBCUT SCH ×4 (07:49→20:36)
[2022-09-27] MEDS: POTASSIUM CHLORIDE 20 MEQ TABLET PO SCH ×2 (09:24→16:26)
[2022-09-27] MEDS: SPIRONOLACTONE 25 MG TABLET PO SCH (09:25)
[2022-09-27] MEDS: FUROSEMIDE 40 MG TABLET PO SCH (09:26)
[2022-09-27] MEDS: DOCUSATE SODIUM 100 MG CAPSULE PO SCH ×2 (09:26→20:35)
[2022-09-27] MEDS: LEFLUNOMIDE 10 MG TABLET PO SCH (09:26)
[2022-09-27] MEDS: FERROUS SULFATE 325 MG TABLET PO SCH ×3 (09:26→20:35)
[2022-09-27] MEDS: VALSARTAN 160 MG TABLET PO SCH (09:26)
[2022-09-27] MEDS: CHOLECALCIFEROL 1,000 UNIT TABLET PO SCH (09:27)
[2022-09-27] MEDS: METOPROLOL SUCCINATE XL 25 MG TABLET PO SCH (09:27)
[2022-09-27] MEDS: amLODIPine 5 MG TABLET PO SCH (09:27)
[2022-09-27] MEDS: MAGNESIUM OXIDE 400 MG TABLET PO SCH (09:27)
[2022-09-27] MEDS: SILDENAFIL 20 MG TABLET PO SCH ×3 (09:27→20:36)
[2022-09-27] MEDS: OXcarbazepine 300 MG TABLET PO SCH ×2 (09:27→20:36)
[2022-09-27] MEDS: TOPIRAMATE 200 MG TABLET PO SCH ×2 (09:27→20:36)
[2022-09-27] MEDS: PANTOPRAZOLE 40 MG TABLET PO SCH (09:27)
[2022-09-27] MEDS ORDERED: ATORVASTATIN 40 MG TABLET PO SCH (21:00)
[2022-09-27] MEDS ORDERED: DONEPEZIL 5 MG TABLET PO SCH (21:00)
[2022-09-28] MEDS: INSULIN REGULAR 100 UNIT/ML SUBCUT SCH ×2 (07:49→12:01)
[2022-09-28] MEDS: SPIRONOLACTONE 25 MG TABLET PO SCH (08:41)
[2022-09-28] MEDS: PANTOPRAZOLE 40 MG TABLET PO SCH (08:41)
[2022-09-28] MEDS: TOPIRAMATE 200 MG TABLET PO SCH (08:41)
[2022-09-28] MEDS: POTASSIUM CHLORIDE 20 MEQ TABLET PO SCH (08:41)
[2022-09-28] MEDS: VALSARTAN 160 MG TABLET PO SCH (08:41)
[2022-09-28] MEDS: LEFLUNOMIDE 10 MG TABLET PO SCH (08:41)
[2022-09-28] MEDS: MAGNESIUM OXIDE 400 MG TABLET PO SCH (08:42)
[2022-09-28] MEDS: FERROUS SULFATE 325 MG TABLET PO SCH (08:42)
[2022-09-28] MEDS: SILDENAFIL 20 MG TABLET PO SCH (08:42)
[2022-09-28] MEDS: FUROSEMIDE 40 MG TABLET PO SCH (08:42)
[2022-09-28] MEDS: OXcarbazepine 300 MG TABLET PO SCH (08:42)
[2022-09-28] MEDS: METOPROLOL SUCCINATE XL 25 MG TABLET PO SCH (08:43)
[2022-09-28] MEDS: CHOLECALCIFEROL 1,000 UNIT TABLET PO SCH (08:43)
[2022-09-28] MEDS: amLODIPine 5 MG TABLET PO SCH (08:46)
[2022-09-28] MEDS: DOCUSATE SODIUM 100 MG CAPSULE PO SCH (08:46)
[2022-09-28 08:56] LABS: Hematocrit 33.9 VOL% (35.7-47.0); Hemoglobin 10.6 GM/DL (12.0-16.0)
[2022-09-28 09:05] LABS: INR 2.4; PT Patient Result 24.9 SECS (10.1-12.1)
[2022-09-28 12:10] VITALS: BP 125/92
== END 2022-09-28 14:26 | disposition home or self-care (01) ==
LOC: N.ED 13:24 → N.EDINP 13:24 → N.2W 21:35
PROVIDERS: ADMIT Family Medicine; ATTEND Family Medicine

== ENCOUNTER 2022-10-29 13:24 | Inpatient (IN) ==
[2022-10-29] MEDS ORDERED: FUROSEMIDE 100 MG/10 ML VIAL IV STA (13:59)
[2022-10-29 14:11] LABS: Basophils # 0.1 10*3/uL (0.0-0.2); Basophils % 1.3 % (0.0-0.8); Eosinophils % 0.4 % (0.00-10.9); Hematocrit 31.3 VOL% (35.7-47.0); Hemoglobin 10.3 GM/DL (12.0-16.0); Immature Granulocytes % 0.2 %; Immature Granulocytes Absolute 0.01 #; Lymphocytes # 0.6 10*3/uL (1.4-4.0); Lymphocytes % 12.5 % (21.3-54.2); Mean Corpuscular HGB Conc 32.9 GM/DL (32-36); Mean Corpuscular Volume 87.9 FL (87-102); Mean Platelet Volume 10.1 FL (9.6-12.0); Monocytes # 0.5 10*3/uL (0.11-0.8); Monocytes % 9.9 % (1.7-12.7); Neutrophils % 75.7 % (38.7-73.9); Platelet Count 173 T/CUMM (130-400); Red Blood Count 3.56 MC/CUMM (3.8-5.5); Red Cell Distribution Width 17.2 % (9.3-17.3); White Blood Count 4.7 T/CUMM (4-12)
[2022-10-29 14:52] LABS: Albumin 3.4 G/DL (3.4-5.0); Bilirubin,Total 1.4 MG/DL (0.20-1.00); Calcium 9.1 MG/DL (8.5-10.1); Osmolality,Calculated 254.2 MOS/KG (273-304); Potassium 4.1 MMOL/L (3.5-5.1); Total Protein 7.2 G/DL (6.4-8.2)
[2022-10-29] MEDS ORDERED: ONDANSETRON 4 MG/2 ML VIAL IV PRN (15:07)
[2022-10-29] MEDS ORDERED: ACETAMINOPHEN 325 MG TABLET PO PRN (15:07)
[2022-10-29] MEDS: POTASSIUM CHLORIDE 20 MEQ TABLET PO SCH (17:56)
[2022-10-29] MEDS: TOPIRAMATE 200 MG TABLET PO SCH (21:25)
[2022-10-29] MEDS: DONEPEZIL 5 MG TABLET PO SCH (21:25)
[2022-10-29] MEDS: SILDENAFIL 20 MG TABLET PO SCH (21:25)
[2022-10-29] MEDS: DOCUSATE SODIUM 100 MG CAPSULE PO SCH (21:25)
[2022-10-29] MEDS: OXcarbazepine 300 MG TABLET PO SCH (21:25)
[2022-10-30 06:35] LABS: INR 3.9; PT Patient Result 39.2 SECS (10.1-12.1)
[2022-10-30 07:10] LABS: Calcium 8.5 MG/DL (8.5-10.1); Osmolality,Calculated 255.9 MOS/KG (273-304); Potassium 4.1 MMOL/L (3.5-5.1)
[2022-10-30] MEDS ORDERED: SPIRONOLACTONE 25 MG TABLET PO SCH (09:00)
[2022-10-30] MEDS ORDERED: FUROSEMIDE 40 MG/4 ML VIAL IV SCH ×2 (09:00→16:00)
[2022-10-30] MEDS ORDERED: MAGNESIUM SULF RIDER 2 GM/50 ML PREMIX IV ONE (10:09)
[2022-10-30] MEDS ORDERED: METOPROLOL TARTRATE 25 MG TABLET PO ONE (10:15)
[2022-10-30] MEDS ORDERED: TORSEMIDE 20 MG TABLET PO SCH (10:22)
[2022-10-30] MEDS: PANTOPRAZOLE 40 MG TABLET PO SCH (10:24)
[2022-10-30] MEDS: POTASSIUM CHLORIDE 20 MEQ TABLET PO SCH ×2 (10:24→17:12)
[2022-10-30] MEDS: METOPROLOL SUCCINATE XL 50 MG TABLET PO SCH (10:24)
[2022-10-30] MEDS: amLODIPine 5 MG TABLET PO SCH (10:24)
[2022-10-30] MEDS: predniSONE 10 MG TABLET PO SCH (10:24)
[2022-10-30] MEDS: DOCUSATE SODIUM 100 MG CAPSULE PO SCH ×2 (10:24→21:50)
[2022-10-30] MEDS: TOPIRAMATE 200 MG TABLET PO SCH ×2 (10:24→21:50)
[2022-10-30] MEDS: SILDENAFIL 20 MG TABLET PO SCH ×3 (10:25→21:50)
[2022-10-30] MEDS: OXcarbazepine 300 MG TABLET PO SCH ×2 (10:25→21:50)
[2022-10-30] MEDS: LEFLUNOMIDE 10 MG TABLET PO SCH (13:12)
[2022-10-30] MEDS: WARFARIN 7.5 MG TABLET PO SCH (17:14)
[2022-10-30] MEDS: ATORVASTATIN 40 MG TABLET PO SCH (21:50)
[2022-10-30] MEDS: DONEPEZIL 5 MG TABLET PO SCH (21:50)
[2022-10-31 04:51] LABS: Basophils % 0.6 % (0.0-0.8); Eosinophils % 0.5 % (0.00-10.9); Hematocrit 28.6 VOL% (35.7-47.0); Hemoglobin 9.1 GM/DL (12.0-16.0); Immature Granulocytes % 0.8 %; Immature Granulocytes Absolute 0.05 #; Lymphocytes # 0.7 10*3/uL (1.4-4.0); Lymphocytes % 10.7 % (21.3-54.2); Mean Corpuscular HGB Conc 31.8 GM/DL (32-36); Mean Corpuscular Volume 90.2 FL (87-102); Monocytes # 0.6 10*3/uL (0.11-0.8); Monocytes % 9.2 % (1.7-12.7); Neutrophils % 78.2 % (38.7-73.9); Platelet Count 170 T/CUMM (130-400); Red Blood Count 3.17 MC/CUMM (3.8-5.5); Red Cell Distribution Width 17.2 % (9.3-17.3); White Blood Count 6.7 T/CUMM (4-12)
[2022-10-31 05:08] LABS: INR 2.8; PT Patient Result 28.7 SECS (10.1-12.1)
[2022-10-31 05:22] LABS: Calcium 8.5 MG/DL (8.5-10.1); Osmolality,Calculated 255.1 MOS/KG (273-304); Potassium 3.9 MMOL/L (3.5-5.1)
[2022-10-31] MEDS: PANTOPRAZOLE 40 MG TABLET PO SCH (09:27)
[2022-10-31] MEDS: predniSONE 10 MG TABLET PO SCH (09:27)
[2022-10-31] MEDS: POTASSIUM CHLORIDE 20 MEQ TABLET PO SCH ×2 (09:27→17:02)
[2022-10-31] MEDS: SILDENAFIL 20 MG TABLET PO SCH ×3 (09:28→21:46)
[2022-10-31] MEDS: amLODIPine 5 MG TABLET PO SCH (09:28)
[2022-10-31] MEDS: SPIRONOLACTONE 50 MG TABLET PO SCH (09:28)
[2022-10-31] MEDS: METOPROLOL SUCCINATE XL 50 MG TABLET PO SCH (09:28)
[2022-10-31] MEDS: LEFLUNOMIDE 10 MG TABLET PO SCH (09:29)
[2022-10-31] MEDS: TOPIRAMATE 200 MG TABLET PO SCH ×2 (09:30→21:45)
[2022-10-31] MEDS: DOCUSATE SODIUM 100 MG CAPSULE PO SCH ×2 (09:30→21:46)
[2022-10-31] MEDS: OXcarbazepine 300 MG TABLET PO SCH ×2 (09:31→21:46)
[2022-10-31] MEDS: TOLVAPTAN 15 MG TABLET PO SCH (15:53)
[2022-10-31] MEDS: WARFARIN 7.5 MG TABLET PO SCH (18:45)
[2022-10-31] MEDS: ATORVASTATIN 40 MG TABLET PO SCH (21:46)
[2022-10-31] MEDS: DONEPEZIL 5 MG TABLET PO SCH (21:46)
[2022-11-01 05:35] LABS: Basophils % 0.7 % (0.0-0.8); Eosinophils % 0.7 % (0.00-10.9); Hemoglobin 9.7 GM/DL (12.0-16.0); Immature Granulocytes % 0.7 %; Immature Granulocytes Absolute 0.04 #; Lymphocytes # 0.7 10*3/uL (1.4-4.0); Lymphocytes % 12.2 % (21.3-54.2); Mean Corpuscular HGB Conc 32.3 GM/DL (32-36); Mean Corpuscular Volume 89.6 FL (87-102); Mean Platelet Volume 10.9 FL (9.6-12.0); Monocytes # 0.5 10*3/uL (0.11-0.8); Monocytes % 8.1 % (1.7-12.7); Neutrophils % 77.6 % (38.7-73.9); Platelet Count 174 T/CUMM (130-400); Red Blood Count 3.35 MC/CUMM (3.8-5.5); Red Cell Distribution Width 17.2 % (9.3-17.3); White Blood Count 6.1 T/CUMM (4-12)
[2022-11-01 06:10] LABS: Calcium 8.8 MG/DL (8.5-10.1); Osmolality,Calculated 258.8 MOS/KG (273-304); Potassium 4.3 MMOL/L (3.5-5.1)
[2022-11-01] MEDS ORDERED: DEXTROSE 10% 250 ML BAG IV PRN (08:09)
[2022-11-01] MEDS ORDERED: GLUCAGON 1 MG VIAL IM PRN (08:09)
[2022-11-01] MEDS: OXcarbazepine 300 MG TABLET PO SCH ×2 (08:23→20:50)
[2022-11-01] MEDS: POTASSIUM CHLORIDE 20 MEQ TABLET PO SCH ×2 (08:23→17:12)
[2022-11-01] MEDS: TOPIRAMATE 200 MG TABLET PO SCH ×2 (08:23→20:49)
[2022-11-01] MEDS: predniSONE 10 MG TABLET PO SCH (08:24)
[2022-11-01] MEDS: TOLVAPTAN 15 MG TABLET PO SCH (08:24)
[2022-11-01] MEDS: SPIRONOLACTONE 50 MG TABLET PO SCH (08:24)
[2022-11-01] MEDS: amLODIPine 5 MG TABLET PO SCH (08:25)
[2022-11-01] MEDS: LEFLUNOMIDE 10 MG TABLET PO SCH (08:25)
[2022-11-01] MEDS: METOPROLOL SUCCINATE XL 50 MG TABLET PO SCH (08:25)
[2022-11-01] MEDS: DOCUSATE SODIUM 100 MG CAPSULE PO SCH ×2 (08:25→20:49)
[2022-11-01] MEDS: PANTOPRAZOLE 40 MG TABLET PO SCH (08:25)
[2022-11-01] MEDS: SILDENAFIL 20 MG TABLET PO SCH ×3 (08:25→20:50)
[2022-11-01] MEDS ORDERED: metOLazone 5 MG TABLET PO ONE (08:30)
[2022-11-01] MEDS: PIPERACILLIN/TAZOBACTAM 3,375 MG in SODIUM CHLORIDE 0.9% 100 ML IV SCH ×2 (10:19→17:12)
[2022-11-01] MEDS: INSULIN LISPRO 100 UNIT/ML SUBCUT SCH ×3 (11:54→20:50)
[2022-11-01] MEDS: WARFARIN 7.5 MG TABLET PO SCH (19:19)
[2022-11-01] MEDS: ATORVASTATIN 40 MG TABLET PO SCH (20:50)
[2022-11-01] MEDS: DONEPEZIL 5 MG TABLET PO SCH (20:50)
[2022-11-02] MEDS: PIPERACILLIN/TAZOBACTAM 3,375 MG in SODIUM CHLORIDE 0.9% 100 ML IV SCH ×3 (00:05→17:43)
[2022-11-02 04:40] LABS: Basophils % 0.6 % (0.0-0.8); Eosinophils # 0.1 10*3/uL (0.0-0.87); Hematocrit 31.2 VOL% (35.7-47.0); Hemoglobin 9.9 GM/DL (12.0-16.0); Immature Granulocytes % 0.8 %; Immature Granulocytes Absolute 0.05 #; Lymphocytes # 0.8 10*3/uL (1.4-4.0); Lymphocytes % 13.5 % (21.3-54.2); Mean Corpuscular HGB Conc 31.7 GM/DL (32-36); Mean Platelet Volume 10.7 FL (9.6-12.0); Monocytes # 0.5 10*3/uL (0.11-0.8); Monocytes % 8.5 % (1.7-12.7); Neutrophils % 75.6 % (38.7-73.9); Platelet Count 187 T/CUMM (130-400); Red Blood Count 3.43 MC/CUMM (3.8-5.5); Red Cell Distribution Width 17.2 % (9.3-17.3); White Blood Count 6.2 T/CUMM (4-12)
[2022-11-02 04:58] LABS: INR 1.7; PT Patient Result 18.2 SECS (10.1-12.1)
[2022-11-02 05:10] LABS: Calcium 8.8 MG/DL (8.5-10.1); Osmolality,Calculated 260.7 MOS/KG (273-304)
[2022-11-02] MEDS: INSULIN LISPRO 100 UNIT/ML SUBCUT SCH ×4 (08:38→22:03)
[2022-11-02] MEDS: FUROSEMIDE 40 MG/4 ML VIAL IV SCH (08:52)
[2022-11-02] MEDS: SPIRONOLACTONE 50 MG TABLET PO SCH (08:58)
[2022-11-02] MEDS: predniSONE 10 MG TABLET PO SCH (08:58)
[2022-11-02] MEDS: OXcarbazepine 300 MG TABLET PO SCH ×2 (08:58→21:34)
[2022-11-02] MEDS: TOPIRAMATE 200 MG TABLET PO SCH ×2 (08:58→21:34)
[2022-11-02] MEDS: METOPROLOL SUCCINATE XL 50 MG TABLET PO SCH (08:59)
[2022-11-02] MEDS: TOLVAPTAN 15 MG TABLET PO SCH (08:59)
[2022-11-02] MEDS: POTASSIUM CHLORIDE 20 MEQ TABLET PO SCH ×2 (08:59→17:43)
[2022-11-02] MEDS: PANTOPRAZOLE 40 MG TABLET PO SCH (08:59)
[2022-11-02] MEDS: DOCUSATE SODIUM 100 MG CAPSULE PO SCH ×2 (08:59→21:34)
[2022-11-02] MEDS: SILDENAFIL 20 MG TABLET PO SCH ×3 (08:59→21:33)
[2022-11-02] MEDS: amLODIPine 5 MG TABLET PO SCH (08:59)
[2022-11-02] MEDS: LEFLUNOMIDE 10 MG TABLET PO SCH (09:04)
[2022-11-02] MEDS ORDERED: WARFARIN 10 MG TABLET PO ONE (18:00)
[2022-11-02] MEDS: WARFARIN 7.5 MG TABLET PO SCH (19:19)
[2022-11-02] MEDS: DONEPEZIL 5 MG TABLET PO SCH (21:33)
[2022-11-02] MEDS: ATORVASTATIN 40 MG TABLET PO SCH (21:33)
[2022-11-03] MEDS: PIPERACILLIN/TAZOBACTAM 3,375 MG in SODIUM CHLORIDE 0.9% 100 ML IV SCH ×2 (00:39→10:05)
[2022-11-03 04:40] LABS: Basophils % 0.7 % (0.0-0.8); Eosinophils # 0.1 10*3/uL (0.0-0.87); Eosinophils % 1.5 % (0.00-10.9); Hematocrit 30.2 VOL% (35.7-47.0); Hemoglobin 9.7 GM/DL (12.0-16.0); Immature Granulocytes % 0.3 %; Immature Granulocytes Absolute 0.02 #; Lymphocytes # 0.8 10*3/uL (1.4-4.0); Lymphocytes % 13.6 % (21.3-54.2); Mean Corpuscular HGB Conc 32.1 GM/DL (32-36); Mean Corpuscular Volume 89.1 FL (87-102); Mean Platelet Volume 11.2 FL (9.6-12.0); Monocytes # 0.6 10*3/uL (0.11-0.8); Neutrophils % 73.9 % (38.7-73.9); Platelet Count 198 T/CUMM (130-400); Red Blood Count 3.39 MC/CUMM (3.8-5.5); Red Cell Distribution Width 17.2 % (9.3-17.3); White Blood Count 5.8 T/CUMM (4-12)
[2022-11-03 04:52] LABS: INR 2.7
[2022-11-03 05:09] LABS: Calcium 9.1 MG/DL (8.5-10.1); Osmolality,Calculated 262.5 MOS/KG (273-304); Potassium 3.9 MMOL/L (3.5-5.1)
[2022-11-03] MEDS ORDERED: MAGNESIUM OXIDE 400 MG TABLET PO SCH (09:28)
[2022-11-03] MEDS: TOPIRAMATE 200 MG TABLET PO SCH (09:34)
[2022-11-03] MEDS: TOLVAPTAN 15 MG TABLET PO SCH (09:34)
[2022-11-03] MEDS: METOPROLOL SUCCINATE XL 50 MG TABLET PO SCH (09:35)
[2022-11-03] MEDS: OXcarbazepine 300 MG TABLET PO SCH (09:35)
[2022-11-03] MEDS: SILDENAFIL 20 MG TABLET PO SCH (09:36)
[2022-11-03] MEDS: POTASSIUM CHLORIDE 20 MEQ TABLET PO SCH (09:36)
[2022-11-03] MEDS: amLODIPine 5 MG TABLET PO SCH (09:36)
[2022-11-03] MEDS: PANTOPRAZOLE 40 MG TABLET PO SCH (09:37)
[2022-11-03] MEDS: predniSONE 10 MG TABLET PO SCH (09:37)
[2022-11-03] MEDS: SPIRONOLACTONE 50 MG TABLET PO SCH (09:37)
[2022-11-03] MEDS: LEFLUNOMIDE 10 MG TABLET PO SCH (09:45)
[2022-11-03] MEDS: DOCUSATE SODIUM 100 MG CAPSULE PO SCH (09:46)
[2022-11-03] MEDS: FUROSEMIDE 40 MG/4 ML VIAL IV SCH (09:50)
[2022-11-03] MEDS: INSULIN LISPRO 100 UNIT/ML SUBCUT SCH ×2 (09:53→14:52)
[2022-11-03 11:53] VITALS: BP 117/79
== END 2022-11-03 15:45 | DRG 291 ==
LOC: N.ED 13:24 → N.EDINP 15:07 → N.TELES 17:23
PROVIDERS: ADMIT Family Medicine; ATTEND Family Medicine